=== PATIENT | male | born 1965 | race Caucasian/White ===

== ENCOUNTER 2017-01-03 12:00 | Inpatient (IN) | payer OTHER ==
[~2017-01-03] VITALS: Ht 185.4 cm; Wt 88.5 kg
--- NOTE | ~2017-01-03 | PN ---
Unit #: [id number] #: [id number] Patient: FLORENCIO PACE [id number] [facility] [address] [place] [address] [id number] MR#: [id number] NAME: FLORENCIO PACE ROOM: P184 Age: 51 Sex: M Admission Date: 01/03/2017 : 1965 Attending Physician: Chantal Vega M.D. Admitting Physician: Chantal Vega M.D. Primary Care Physician: Generic Doctor Not In System [facility] PROGRESS NOTES DATE OF SERVICE: 01/05/2017 SUBJECTIVE Mr. Pace is a 60-year-old white male, who was seen today and chart was reviewed, and case was discussed with the staff. He has been anxious, withdrawn, and rather seclusive to himself. Meanwhile, he has been cooperative with treatment recommendation and has been taking medications and tolerating them fairly well with no reported side effects. MENTAL STATUS EXAMINATION Middle-aged white male, who was casually dressed with fair personal hygiene, appears to be in no acute distress or discomfort. He was awake and alert on interaction with intact orientation. His mood was anxious with a congruent affect. He denies any suicidal or homicidal ideation. His insight and judgment remain slightly impaired. TREATMENT PLAN 1. We will continue his current medications and treatment protocol. We will monitor his response to medications and make further adjustments as needed. 2. We will continue to follow up. Dictated by... Nacho Jacobsen/anita TD: 01/08/2017 00:10 JOB #: [id number] [facility] PROGRESS NOTES Page 1 of 1 X Chantal Vega MD PROGRESS NOTE
--- NOTE | ~2017-01-03 | CR169 ---
[facility] A Service of [facility] RADIOLOGY TEXT RESULTS PATIENT: FLORENCIO PACE LOCATION: E P184-1 : [birth year] UNIT #: [id number] AGE: [address]: Chantal Vega MD SEX: M ORDER DR: [id number] [facility] [address] [facility]. [place], [place] [address] [id number] MR#: [id number] Acc #: [id number] NAME: FLORENCIO PACE : 1965 SEX: M STUDY DATE/TIME: 01/06/2017 15:00 UNIT: [facility] ROOM: [facility] STUDY DESCRIPTION: CR Knee 2 Views Lt Attending Physician: Chantal Vega M.D. Ordering Physician: Chantal Vega M.D. Primary Care Physician: Generic Doctor Not In System MEDICAL IMAGING REPORT This report is preliminary unless electronic signature is present EXAM 2 views of the left knee, 01/06/2017 HISTORY Left knee pain which began 1 month ago. In an accident 1 month ago. Pain above the patella. COMPARISON None FINDINGS No fracture or joint dislocation is seen. No unexpected retained radiopaque foreign body is evident within the soft tissues. Lateral image demonstrates poor penetration quality. No significant osteoarthritic change is identified. IMPRESSION No acute left knee findings. Dictated by... Nanci Aguilar M.D. THIS IS AN ELECTRONICALLY VERIFIED REPORT Nanci Aguilar M.D. at 01/08/2017 9:52 AM KYLAH/aliya TD: 01/07/2017 12:36 JOB #: [id number] MEDICAL IMAGING REPORT Page 1 of 1 COPY
--- NOTE | ~2017-01-03 | CO ---
Unit #: [id number] #: [id number] Patient: FLORENCIO PACE [id number] [facility] [address] [place] [address] [id number] MR#: [id number] NAME: FLORENCIO PACE. ROOM: P184 Age: 51 Sex: M Admission Date: 01/03/2017 : 1965 Attending Physician: Chantal Vega M.D. Primary Care Physician: Generic Doctor Not In System Consultation Date: 01/06/2017 CONSULTATION REPORT ORDERING PROVIDER Dr. Vega. REASON FOR CONSULT Left knee pain and swelling. SUBJECTIVE The patient reports that about a month ago he was walking up some stairs and he twisted his left knee. Ever since, his knee has had pain and swelling on the lateral aspect of the anterior patella. It hurts to walk and to flex his knee. He went to the ER at the [facility] with complaints of knee pain and chest congestion. He reports that the ER told him that he had to pick one complaint, he chose the chest congestion and so they did not do anything for his knee at that time. OBJECTIVE VITAL SIGNS: Vital signs are stable. EXTREMITIES: Left knee shows mild amount of soft tissue swelling anteriorly and laterally. Tender to palpate over this area of swelling. Full range of motion, but flexion elicits pain. There is no erythema or bruising noted. ASSESSMENT Left knee pain and swelling. PLAN To start the patient on Aleve and get an x-ray. We will also brace the knee if possible. I discussed with the patient that he would likely need either an orthopedic referral or an MRI outpatient. Dictated by... Vikram Swanson/anita TD: 01/07/2017 16:17 JOB #: [id number] Unit #: [id number] #: [id number] Patient: FLORENCIO PACE CONSULTATION REPORT Page 1 of 1 X AD RODAS APRN CONSULTATION REPORT
--- NOTE | ~2017-01-03 | PN ---
Unit #: [id number] #: [id number] Patient: FLORENCIO PACE [id number] [facility] [address] [place] [address] [id number] I MR#: [id number] NAME: FLORENCIO PACE ROOM: P184 Age: 51 Sex: M Admission Date: 01/03/2017 : 1965 Attending Physician: Chantal Vega M.D. Admitting Physician: Chantal Vega M.D. Primary Care Physician: Generic Doctor Not In System [facility] PROGRESS NOTES DATE OF SERVICE 01/04/2017 DISCUSSION Mr. Pace is a 51-year-old, white male who was seen today and chart was reviewed and case was discussed with the staff. He has been anxious, withdrawn and seclusive to himself with persistent depressive symptoms. Meanwhile, he has been calm and cooperative with treatment recommendations. MENTAL STATUS EXAM Middle-aged white male who was casually dressed with fair personal hygiene, appears to be in no acute distress or discomfort. He was awake and alert with impaired attention and concentration. His mood was anxious with congruent affect. His speech was slow and restricted in content. He reports having suicidal ideation but denies any homicidal ideations. His insight and judgement remains slightly impaired. TREATMENT PLAN 1. We will continue him on his current medications and treatment protocol. We will monitor his response to the medication and make further adjustments as needed. 2. We will continue to follow up. Dictated by... Nacho Jacobsen/courtney TD: 01/04/2017 20:09 JOB #: [id number] [facility] PROGRESS NOTES Page 1 of 1 X Chantal Vega MD PROGRESS NOTE
--- NOTE | ~2017-01-03 | PA ---
Unit #: [id number] #: [id number] Patient: FLORENCIO PACE [id number] [facility] [address] [place] [address] [id number] I MR#: [id number] NAME: FLORENCIO PACE ROOM: P184 Age: 51 Sex: M Admission Date: 01/03/2017 : 1965 Date of Assessment: 01/03/2017 Attending Physician: Chantal Vega M.D. Admitting Physician: Chantal Vega M.D. Primary Care Physician: Generic Doctor Not In System PSYCHIATRIC ASSESSMENT IDENTIFYING DATA Mr. Pace is a 51-year-old white male, who is a resident of [place], [place] and is self-referred to the hospital on a voluntary basis. CHIEF COMPLAINT "I called [facility] and they told me to come here." HISTORY OF PRESENT ILLNESS Mr. Pace is a 51-year-old white male, who came to the hospital stating "I want to check in there but they said they could not take me because I'm on medication, hearing voices, and having suicidal thoughts, and hearing voices like, I do good for a while and then I do horrible, I feel like my life is pointless, I don't know why I am living, I tried to overdose on cocaine about four months ago and I just want to do the easiest and most painless way, I don't know how though, I'm depressed all of the time, I've gotten use to it." The patient does endorse significant depression and anxiety, irritability, restlessness, and reports psychomotor retardation, feelings of hopelessness and helplessness, and suicidal ideations. SUBSTANCE ABUSE HISTORY The patient reports history of alcohol, cannabis, and cocaine abuse, and reports that cocaine is his drug of choice. He has been drinking regularly and heavily, and has been drinking two pints or a fifth a day with the last day use being yesterday. PAST PSYCHIATRIC HISTORY The patient reports history of chemical dependency, psychiatric treatment, in the past and has been diagnosed and treated for mood disorder, and is currently seen at [facility] and has been on a combination of Invega and Trazodone, and Seroquel. PAST MEDICAL HISTORY The patient's past medical history is significant for gastroesophageal reflux disease and asthma. MEDICATION ALLERGIES No known medication allergies. PERSONAL AND SOCIAL HISTORY Avydb-alhx-vdw white male, who reports that he is single and unemployed and lives at [facility]. Unit #: [id number] #: [id number] Patient: FLORENCIO PACE MENTAL STATUS EXAM Middle-aged white male, who was casually dressed with fair personal hygiene and appears to be in no acute distress or discomfort. He was awake and alert on interaction with intact orientation to time, place, and person. His mood is anxious and depressed with a congruent affect. His speech is slow and restricted in content. His thought processes are disorganized with some looseness of associations and suicidal ideations. His insight and judgment remain significantly impaired. DIAGNOSTIC IMPRESSION Psychiatric: Portal I: Bipolar disorder, most recent episode depressed, recurrent, moderate, with psychosis. Alcohol dependence, moderate, and acute withdrawal. Cocaine dependence, moderate. Portal II: Portal III: Asthma. Gastroesophageal reflux disease. Portal IV: Moderate psychosocial stressors. Portal V: TREATMENT PLAN 1. The patient has presented with history of mood disorder and substance abuse, and dependence and has been decompensating and will need inpatient hospitalization for safety and stabilization, and will start him back on his home medications and adjust the medications and monitor his response. 2. Supportive therapy was provided to the patient. 3. Safe, structured, and nourishing environment will be provided. ESTIMATED LENGTH OF STAY Aurs-ow-hwmhf days. ABILITY TO HELP SELF Limited. WILLINGNESS TO HELP SELF The patient appears to be willing to help self. STRENGTHS 1. Communicative. 2. Cooperative. PROBLEMS 1. Chronic dysphoric symptoms. 2. Poor social support system. DISCHARGE CRITERIA This will be contingent upon the patient's ability to go through detox without any significant withdrawal symptoms as well as his ability to show resolution of his depression and anxiety, and his ability to stay safe to himself, particularly after discharge from the hospital. Dictated by... Unit #: [id number] #: [id number] Patient: FLORENCIO PACE Nacho Jacobsen/mackenzie TD: 01/04/2017 12:25 JOB #: [id number] PSYCHIATRIC ASSESSMENT Page 1 of 1 X Chantal Vega MD PSYCHIATRIC ASSESSMENT
--- NOTE | ~2017-01-03 | PN ---
Unit #: [id number] #: [id number] Patient: FLORENCIO PACE [id number] [facility] [address] [place] [address] [id number] I MR#: [id number] NAME: FLORENCIO PACE. ROOM: P184 Age: 51 Sex: M Admission Date: 01/03/2017 : 1965 Attending Physician: Chantal Vega M.D. Admitting Physician: Chantal Vega M.D. Primary Care Physician: Generic Doctor Not In System [facility] PROGRESS NOTES DATE OF SERVICE 01/07/2017 DISCUSSION Mr. Pace is a 51-year-old white male who was seen today. Chart was reviewed and case was discussed with the staff. He has been anxious, withdrawn, and rather seclusive to himself though appears to be coming out of the detox without any complications. He has been taking the medications and tolerating them fairly well with no reported side effects. MENTAL STATUS EXAMINATION Middle-aged white male who is casually dressed with fair personal hygiene, appears to be in no acute distress or discomfort. He was awake and alert on interaction with intact orientation. Her mood is anxious and depressed with congruent affect. Her speech is slow and restricted in content. He denies any suicidal or homicidal ideations. His insight and judgment remain slightly impaired. TREATMENT PLAN 1. We will continue him on his current medications and treatment protocol. We will monitor his response to the medications and make further adjustments as needed. 2. We will continue to follow up. Dictated by... Nacho Jacobsen/ning TD: 01/08/2017 13:02 JOB #: [id number] Unit #: [id number] #: [id number] Patient: FLORENCIO PACE [facility] PROGRESS NOTES Page 1 of 1 X Chantal Vega MD PROGRESS NOTE
--- NOTE | ~2017-01-03 | DS ---
Unit #: [id number] #: [id number] Patient: FLORENCIO PACE [id number] [facility] [address] [place] [address] [id number] I MR#: [id number] NAME: FLORENCIO PACE. ROOM: P184 Age: 51 Sex: M Admission Date: 01/03/2017 : 1965 Discharge Date: 01/08/2017 Attending Physician: Chantal Vega M.D. Primary Care Physician: Generic Doctor Not In System DISCHARGE SUMMARY IDENTIFYING DATA Mr. Pace is a 51-year-old white male, who is a resident of [place], [place] and was self-referred to the hospital on a voluntary basis. HISTORY OF PRESENT ILLNESS Please see initial psychiatric evaluation for details. PAST PSYCHIATRIC HISTORY Please see initial psychiatric evaluation for details. PAST MEDICAL HISTORY Please see initial psychiatric evaluation for details. HOSPITAL COURSE The patient was admitted to the Adult Psychiatric Unit and Chemical Dependence Unit, at [facility], and was oriented to the hospital environment. Routine p.r.n. medications were initiated and he was started back on his home medications and medications were adjusted, and he was closely monitored. He was taking his medications regularly and he was tolerating them fairly well and was able to show a decent therapeutic response and improvement in his depression and anxiety, and he will continue treatment in outpatient basis and as such it was decided to discharge him to continue treatment on an outpatient basis. DISCHARGE DIAGNOSES Psychiatric: Midland I Bipolar disorder, most recent episode depressed, recurrent, with psychosis. Alcohol dependence, moderate, and acute withdrawal. Cocaine dependence, moderate. Midland II Midland III None. Midland IV Moderate psychosocial stressors. Midland V DISCHARGE MEDICATIONS Invega 9 mg at bedtime for psychosis CONDITION AT DISCHARGE Stable. Unit #: [id number] #: [id number] Patient: FLORENCIO PACE PROGNOSIS Fair. Dictated by... Nacho Jacobsen/mackenzie TD: 01/10/2017 11:43 JOB #: [id number] DISCHARGE SUMMARY Page 1 of 1 X Chantal Vega MD X DISCHARGE SUMMARY
--- NOTE | ~2017-01-03 | HP ---
Unit #: [id number] #: [id number] Patient: FLORENCIO PACE [id number] [facility] [address] [place] [address] [id number] I MR#: [id number] NAME: FLORENCIO PACE. ROOM: P184 Age: 51 Sex: M Admission Date: 01/03/2017 : 1965 Attending Physician: Chantal Vega M.D. Admitting Physician: Chantal Vega M.D. Primary Care Physician: Rajendra Doctor Not In System HISTORY AND PHYSICAL HISTORY OF PRESENT ILLNESS Florencio is a 51 year old admitted to [facility] because of his abuse of alcohol. He is detoxing. PAST MEDICAL HISTORY 1. Long history of alcohol abuse. 2. COPD. PAST SURGICAL HISTORY Nothing reported. ALLERGIES No known drug allergies. SOCIAL HISTORY Smokes greater than 1 pack per day. Drinks at least a pint of liquor on a daily basis. Admits to using cocaine and meth on occasion. FAMILY HISTORY Medically noncontributory. REVIEW OF SYSTEMS CONSTITUTIONAL: No fever or chills. HEENT: Denies any sore throat, ear pain or runny nose. CARDIOVASCULAR: Denies chest pain, irregular heart rhythm or palpitations. CHEST: Denies shortness of breath or cough. No hemoptysis. GASTROINTESTINAL: Denies nausea, vomiting, diarrhea or chronic constipation. ENDOCRINE: Denies history of increased thirst or urination. No recent significant weight loss or gain. GENITOURINARY: Denies dysuria, frequency, or hematuria. SKIN: Denies any rashes. HEMATOLOGIC: Denies history of increased bleeding or bruising. EXTREMITIES: He does report chronic pain in his left knee. He denies any recent injury. NEUROLOGIC: Denies problems with vision or speech. No frequent, severe headaches. No numbness, tingling or weakness in any extremities. Denies loss of bladder or bowel control. CURRENT MEDICATIONS 1. Detox protocol. 2. Desyrel 100 mg q.h.s. 3. Proventil 2 puffs daily. Unit #: [id number] #: [id number] Patient: FLORENCIO PACE 4. Zanaflex 8 mg q.h.s. 5. Protonix 40 mg daily. PHYSICAL EXAMINATION GENERAL: Alert, well-nourished, in no apparent distress. VITAL SIGNS: Blood pressure 126/86, heart rate 88, respirations 16, temperature 98.6. WEIGHT: 195. HEIGHT: 6 feet 1 inch. SKIN: Warm and dry without rash or lesion. HEENT: Normocephalic. TMs not viewed. Oral and nasal passages clear. Conjunctivae clear. PERRLA. EOMs intact. NECK: Supple without lymphadenopathy or thyromegaly. HEART: Regular rate and rhythm without murmur. LUNGS: Clear. ABDOMEN: Soft, nontender. : Not done. EXTREMITIES: No evidence of cyanosis, clubbing or edema. Moves all without focal deficit. NEUROLOGICAL: Grossly within normal limits. Cranial Nerves: II: Visual clark are intact. III, IV AND : Extraocular movements are intact. Pupils are equal, round and reactive to light. V: Facial sensation is grossly normal. VII: Facial movements and expression are normal. VIII: Auditory acuity grossly intact. IX, X: Uvula is midline. Phonation is normal. XI: Patient shrugs shoulders and turns head normally. XII: Tongue protrudes in the midline. Sensory and Motor Function: Sensory and motor sensation is grossly normal. Motor: moves all extremities well. Coordination: Gait is normal. Deep Tendon Reflexes: Intact. IMPRESSION Psychiatric admission. RECOMMENDATIONS PSYCHIATRIC: Per psychiatrist. MEDICAL: See no contraindication to participate in facility's activities. MEDICAL PROGNOSIS Good. MEDICAL CONDITION Stable. Dictated by... Bea Vargas P.A.-C. for Nacho Storey/luke TD: 01/04/2017 17:49 JOB #: [id number] Unit #: [id number] #: [id number] Patient: FLORENCIO PACE HISTORY AND PHYSICAL Page 1 of 1 X Bea Vargas HISTORY AND PHYSICAL
--- NOTE | ~2017-01-03 | PN ---
Unit #: [id number] #: [id number] Patient: FLORENCIO PACE [id number] [facility] [address] [place] [address] [id number] I MR#: [id number] NAME: FLORENCIO PACE ROOM: 84 Age: 51 Sex: M Admission Date: 01/03/2017 : 1965 Attending Physician: Chantal Vega M.D. Admitting Physician: Chantal Vega M.D. Primary Care Physician: Rajendra Doctor Not In System [facility] PROGRESS NOTES DATE January 06, 2017 DISCUSSION Mr. Pace is a 51-year-old white male, who was seen today and chart was reviewed and the case was discussed with the staff. He has been anxious, withdrawn, and rather seclusive to himself. Meanwhile, he has been cooperative with the treatment recommendations and he has been taking the medications and tolerating them fairly well with no reported side effects. MENTAL STATUS EXAMINATION Middle-aged white male, who was casually dressed with fair personal hygiene and appears to be in no acute distress or discomfort. He was awake and alert on interaction with intact orientation. His mood is anxious with a congruent affect. He denies any suicidal or homicidal ideations. His insight and judgment remain slightly impaired. TREATMENT PLAN 1. We will continue him on his current medications and treatment protocol, and will monitor his response to the medications, and make further adjustments as needed. 2. We will continue to followup. Dictated by... Nacho Jacobsen/mackenzie TD: 01/07/2017 11:32 JOB #: [id number] Unit #: [id number] #: [id number] Patient: FLORENCIO PACE [facility] PROGRESS NOTES Page 1 of 1 X Chantal Vega MD PROGRESS NOTE
[2017-01-04 12:37] LABS: BASOPHIL# 0.1 X10e3 (0-0.3); BASOPHIL% 1.4 % (0-2.5); EOSINOPHIL# 0.2 X10e3 (0-0.7); EOSINOPHIL% 2.6 % (0.0-7.0); HEMATOCRIT 46.9 % (38.0-50.0); HEMOGLOBIN 16.1 gm/dL (13.0-16.0); LYMPHOCYTE# 1.7 X10e3 (1.0-3.5); MEAN CELL VOLUME 90.5 FL (83-96); MEAN CORPUSCULAR HEMOGLOBIN 31.1 PG (28-34); MEAN CORPUSCULAR HGB CONC 34.3 g/dL (30-36); MONOCYTE# 0.8 X10e3 (0-1.0); MONOCYTE% 8.7 % (3.0-12.0); NEUTROPHIL% 68.3 % (40-75); PLATELET COUNT 227 X10e3 (140-420); RED BLOOD COUNT 5.18 X10e (3.90-5.60); RED CELL DISTRIBUTION WIDTH 14.2 % (11.0-15.5); WHITE BLOOD COUNT 8.9 X10e3 (4.0-10.5)
[2017-01-04 12:43] LABS: DIFF IND NO
[2017-01-04 12:49] LABS: ALBUMIN SERUM 3.7 g/dL (3.5-5.0); BILIRUBIN,TOTAL 1.1 mg/dL (0.2-2.0); CALCIUM SERUM 9.6 mg/dL (8.4-10.2); CREATININE SERUM 0.8 mg/dL (0.6-1.4); GLOM FILT RATE Estimated 104.2 mL/min (>60); POTASSIUM 4.4 mmol/L (3.5-5.1); PROTEIN TOTAL SERUM 6.4 g/dL (6.0-8.3)
[2017-01-05 11:33] LABS: URINE APPEARANCE CLEAR; URINE BILIRUBIN NEG (NEG); URINE BLOOD NEG (NEG); URINE COLOR DK YELLOW; URINE GLUCOSE NEG (NEG); URINE KETONE NEG (NEG); URINE LEUKOCYTE ESTERASE TRACE (NEG); URINE NITRATE NEG (NEG); URINE PROTEIN NEG (NEG); URINE SPECIFIC GRAVITY 1.018 (1.003-1.035); URINE UROBILINOGEN 0.2 MG/DL (NEG)
[2017-01-05 11:36] LABS: URBCS1 AUWI 0-2 /[HPF] (0-2); URINE BACTERIA AUWI NEG (NEGATIVE); URINE SQUAMOUS EPITHELIAL CELL NONE SEEN /[HPF]; UWBCS1 AUWI 0-2 (0-5)
[2017-01-05 12:06] LABS: AMPHETAMINE NEG (NEG); BARBITURATES NEG (NEG); BENZODIAZEPINES POS (NEG); COCAINE POS (NEG); MARIJUANA NEG (NEG); OPIATES NEG (NEG); TRICYCLIC ANTIDEPRESSANTS NEG (NEG); U METHADONE NEG (NEG)
== END 2017-01-08 11:00 | DRG 897 ==
LOC: P1E 14:22
PROVIDERS: Psychiatry & Neurology Psychiatry
PROC: HZ2ZZZZ Detoxification Services for Substance Abuse Treatment (ICD-10-PCS; principal; 2016-12-31)
DX: F10.239 Alcohol dependence with withdrawal, unspecified (principal); F31.32 Bipolar disorder, current episode depressed, moderate; K21.9 Gastro-esophageal reflux disease without esophagitis; J45.909 Unspecified asthma, uncomplicated; F17.200 Nicotine dependence, unspecified, uncomplicated; J44.9 Chronic obstructive pulmonary disease, unspecified
CPT/HCPCS: 73560; 80053; 80307; 81003; 85025; 86592